=== PATIENT | female | born 1970 | race Caucasian/White ===

== ENCOUNTER 2018-01-25 12:55 | Inpatient (IN) | payer OTHER ==
[~2018-01-25] VITALS: Ht 160 cm; Wt 81.6 kg
[2018-01-25] MEDS ORDERED: LOSA100T15 PO (13:16)
[2018-01-25] MEDS ORDERED: METO100T14 PO (13:16)
[2018-01-25] MEDS ORDERED: DULA1.5P SQ (13:16)
[2018-01-25] MEDS ORDERED: PRAV40TA PO (13:16)
[2018-01-25] MEDS ORDERED: METF-495 PO (13:16)
[2018-01-25] MEDS ORDERED: hydrALAZINE HCL 50 MG TABLET PO PRN (13:45)
[2018-01-25] MEDS ORDERED: diphenhydrAMINE 50 MG CAPSULE PO PRN (13:45)
[2018-01-25] MEDS ORDERED: ONDANSETRON 4 MG/2 ML VIAL IM PRN (13:45)
[2018-01-25] MEDS ORDERED: LOPERAMIDE HCL 2 MG CAPSULE PO PRN ×2 (13:45)
[2018-01-25] MEDS ORDERED: DICYCLOMINE HCL 20 MG TABLET PO PRN (13:45)
[2018-01-25] MEDS ORDERED: DEXTROSE 50% 50 ML DISP.SYRIN IV PRN (13:45)
[2018-01-25] MEDS ORDERED: LORAZEPAM 1 MG TABLET PO PRN (13:45)
[2018-01-25] MEDS ORDERED: MAG HYDROX/AL HYDROX/SIMETH 30 ML LIQUID UDC PO PRN (13:45)
[2018-01-25] MEDS ORDERED: MIRALAX 17 GM POWD.PACK PO PRN (13:45)
[2018-01-25] MEDS ORDERED: THIAMINE HCL 200 MG/2 ML VIAL IM ONE (13:45)
[2018-01-25] MEDS ORDERED: LORAZEPAM 2 MG/1 ML VIAL IM PRN (13:45)
[2018-01-25] MEDS ORDERED: MAGNESIUM HYDROXIDE 30 ML LIQUID UDC PO PRN (13:45)
[2018-01-25] MEDS ORDERED: ACETAMINOPHEN 325 MG TABLET PO PRN (13:45)
[2018-01-25 14:10] VITALS: BP 183/96
[2018-01-25 14:10] LABS: *AMPHETAMINE, URINE NEGATIVE (NEGATIVE); *BARBITURATE, URINE NEGATIVE (NEGATIVE); *CANNABINOID, URINE NEGATIVE (NEGATIVE); *COCCAINE, URINE NEGATIVE (NEGATIVE); *OPIATE, URINE NEGATIVE (NEGATIVE); *PHENCYCLIDINE SCREEN,URINE NEGATIVE (NEGATIVE)
--- NOTE | 2018-01-25 14:10 | NUR ---
PRE-ADMISSION Pt is a 47 year old female, AA&Ox4 presenting herself to [facility] recovery for ETOH and Benzo use. Pt is noted with anxiety m/b difficulty staying still. Pt is c/o hot/chills and sweats and headache /10. Facial grimacing is observed. BP was 183/96, P 77 R 18, T 98.1, O2 98%. Pt was seen and examined by Dr. Wang. Pt will be admitted up on the unit. Will continue to f/u.
[2018-01-25 14:27] LABS: *URINE HCG, QUAL NEGATIVE (NEGATIVE)
[2018-01-25] MEDS ORDERED: FLUC100T8 PO (15:15)
[2018-01-25] MEDS ORDERED: PHEN-894 PO ×2 (15:15)
[2018-01-25] MEDS ORDERED: METO200T49 PO (15:15)
[2018-01-25] MEDS ORDERED: CEPH500C2 PO (15:15)
[2018-01-25] MEDS ORDERED: ASPI81TA31 PO (15:15)
[2018-01-25] MEDS ORDERED: LABETALOL HCL 100 MG TABLET PO ONE (15:15)
[2018-01-25] MEDS ORDERED: CLON0.1T PO (15:15)
[2018-01-25] MEDS ORDERED: IBUP-1953 PO (15:15)
[2018-01-25] MEDS ORDERED: EPIN0.3A3 IM (15:15)
[2018-01-25] MEDS ORDERED: ONDA8TAB13 PO (15:15)
[2018-01-25] MEDS ORDERED: DIPH25CA83 PO (15:15)
[2018-01-25] MEDS: IBUPROFEN 400 MG TABLET PO PRN (15:20)
[2018-01-25] MEDS: LORAZEPAM 1 MG TABLET PO SCH ×3 (15:20→21:25)
[2018-01-25 15:29] LABS: *BILIRUBIN,URIN NEGATIVE (NEGATIVE); *BLOOD, URINE NEGATIVE (NEGATIVE); *COLOR,URINE YELLOW (YELLOW); *KETONES,URINE TRACE (NEGATIVE); *PROTEIN,URINE TRACE (NEGATIVE); *UROBILINOGEN,URINE 0.2 E.U./dl (NORMAL); LEUKOCYTE ESTERASE ,URINE NEGATIVE (NEGATIVE); NITRITE, URINE NEGATIVE (NEGATIVE); UGLUCOSE NEGATIVE (NEGATIVE)
[2018-01-25 15:51] LABS: *CLARITY,URINE SLIGHTLY HAZY (CLEAR)
[2018-01-25 15:52] LABS: BACTERIA,URINE MODERATE /HPF (NONE SEEN); MUCUS,URINE FEW /LPF (0-FEW); SQUAMOUS EPITHELIAL CELL,UR MODERATE /HPF (NONE SEEN); WBC,URINE 0-3 /HPF (0-3)
[2018-01-25 15:52] LABS: BASOPHILS # (AUTO) 0.1 K/uL (0.0-8.0); BASOPHILS % (AUTO) 0.7 % (0.0-2.0); EOSINOPHILS % (AUTO) 0.4 % (0.0-7.0); HEMOGLOBIN 14.1 g/dL (10.9-14.3); LYMPHOCYTES % (AUTO) 21.2 % (20.5-51.5); MEAN CORPUSCULAR HEMOGLOBIN 31.8 uug (24.7-32.8); MEAN CORPUSCULAR HGB CONC 34 g/dL (32.3-35.6); MEAN CORPUSCULAR VOLUME 94.8 fL (75.5-95.3); MONOCYTES # (AUTO) 0.7 K/uL (2.0-10.0); MONOCYTES % (AUTO) 7.8 % (0.0-11.0); NEUTROPHILS # (AUTO) 6.4 K/uL (1.8-8.9); NEUTROPHILS % (AUTO) 69.9 % (38.5-71.5); PLATELET COUNT (AUTO) 322 K/uL (179-408); RED BLOOD CELL COUNT(AUTO) 4.43 MIL/uL (3.63-4.92); WHITE BLOOD COUNT (AUTO) 9.2 K/uL (3.8-11.8)
[2018-01-25 16:00] VITALS: BP 147/92
[2018-01-25 16:08] LABS: ALANINE AMINOTRANSFERASE 26 U/L (14-59); ALKALINE PHOSPHATASE 82 U/L (50-136); AMYLASE 23 U/L (25-115); ASPARTATE AMINOTRANSFERASE 14 U/L (15-37); CARBON DIOXIDE 29 mmol/L (21-32); CHLORIDE 96 mmol/L (98-107); CREATININE 0.9 mg/dL (0.6-1.3); GLUCOSE 245 mg/dL (74-106); POTASSIUM 4.3 mmol/L (3.5-5.1); TOTAL PROTEIN, SERUM 8.1 g/dL (6.4-8.2); UREA NITROGEN, BLOOD 9 mg/dL (7-18)
[2018-01-25] MEDS ORDERED: PHENAZOPYRIDINE 200 MG PO PRN (16:15)
[2018-01-25 16:20] LABS: THYROID STIMULATING HORMONE 2.104 mIU/mL (0.358-3.740)
--- NOTE | 2018-01-25 16:20 | NUR ---
ADMISSION NOTE Pt is a 47 yr old female, AA&Ox4. Pt is presenting herself to [facility] for ETOH and Benzo use. Pt is observed with anxiety m/b difficulty staying still. Pt is noted with facial redness and fine tremors on BUE. Body check was complete. Skin is intact, warm and moist to touch. Pt c/o headache 03/30 Pt was given Motrin 400mg PO PRN as ordered and Labetalol 100mg PO x1 for increase BP of 183/96 at 1520. Medication was effective. After 1 hour, BP was 147/92. Pt was encouraged increase fluid intake. Pt states of having multiple allergies to food and medication. Pt states of being having allergies to Ciprofloxacin, Hydrocodone, Ketorolac, Metoclopramide, Nitrofurantoin, Oxycodone, Prochlorperazine, Eggs, Tree nuts, Peanuts, Kiwi, Nectarine, and peach. Pt states she follows a Vegetarian diet. Pt has PMH of DM II, HTN, Hyperlipidemia, Anxiety, Panic Disorder, Bulging disc, kidney disease and Hx of UTI. Pt has past Sx of Tonsillitis, Hysterectomy, x2, Cardiac Ablation, Nose Sx and Lap-ban. Pt brought medication from home and was reconciled. Pt PCP is Dr. Vesta Watson from [facility] and Pharmaceutical doctor is Dr. Eder Medrano. Substance History Use: 1. ETOH - Pt states of first drinking at the age of 12 but became an issue in 2008. Pt states she relapsed in 2009 and was drinking 1500ml of wine or 750ml of Vodka daily for the past 8 years. Last drink was on 01/24/18, pt states she drank 6-7 shots of vodka. 2. Klonopin - Pt states she was given Klonopin 3 years ago for anxiety. Pt states of taking 2-3mg PO daily for the past 3 years. Last use was on 01/24/18 pt states of taking 2mg PO PRN. Pt states she has been drinking heavily to suppress her anxiety. Pt states it has been affecting her health, her work and affecting her relationship with her family. Pt states of wanting to stop drinking and maintain a sober lifestyle. Pt states of drinking until she blacks out every night and cannot recall the events that occurred during the night. She states of fallen several times from being too intoxicated. Pt states, "I do not want to ". No SI/HI noted. Admission CIWA score is 13. Pt was seen and examined by Dr. Wang and start on a 5 day modified Ativan taper as ordered. Pt was educated on medication regimen and plan of care. Pt was able to verbalized. Pt is on fall and seizure precaution. Pt is also on a consistent diabetic Vegetarian Carb diet. Pt was oriented around unit and equipment in room. Will continue to monitor.
[2018-01-25 16:26] LABS: ETHANOL < 3 MG/DL (0-0)
[2018-01-25 16:31] LABS: MAGNESIUM 1.2 mg/dL (1.8-2.4)
[2018-01-25] MEDS ORDERED: MAGNESIUM OXIDE 400 MG TABLET PO ONE ×2 (16:45→21:00)
[2018-01-25] MEDS: BLOOD SUGAR DIAGNOSTIC 1 EACH STRIP VI SCH ×2 (17:18→21:29)
[2018-01-25] MEDS: METFORMIN HCL 500 MG TABLET PO SCH (17:18)
[2018-01-25] MEDS: INSULIN REGULAR, HUMAN 300 UNIT/3 ML VIAL SQ PRN (17:28)
[2018-01-25] MEDS ORDERED: PATIENT MAY USE OWN MED- MD OK PO SCH (18:00)
--- NOTE | 2018-01-25 19:10 | NUR ---
END OF SHIFT Pt is noted with increase anxiety. Fine tremors are seen on BUE. Facial redness is noted. Pt is c/o chills and itching sensation on BUE and BLE. Ativan 2mg PO was given at 1844 as scheduled. Encouraged increase fluids for hydration. Last CIWA score was 10 at 1600. Endorsed to shiftman nurse to continue to monitor.
--- NOTE | 2018-01-25 19:15 | NUR ---
Start of Shift Note: Received patient from day shift nurse. Patient 47 y.o female admitted on 01/25/18 for medically supervised withdrawal from ETOH & Klonopin. Patient has multiple allergies to food and medications. Patient received in her room sitting in bed and appears flushed, has racing thoughts and appears anxious. Patient presented with restlessness, fine tremors, reports mild headache, & tingling sensation on skin. Patient started on Ativan taper and tolerating medications well. Last CIWA is 10. Pt received PRN Motrin during day shift and was effective. Patient is diabetic and educated compliance of diet regimen. Educated patient on current plan of care and verbalized understanding. Patient is stable at this time. Will continue to monitor patient.
--- NOTE | 2018-01-25 19:47 | NUR ---
PRN Hydralazine Patient noted with a B/P 162/106, MI 82. Pt denies any chest pain, dizziness, headache or nausea. PRN Hydralazine administered as ordered. Will continue to monitor.
[2018-01-25 20:00] VITALS: BP 162/106
--- NOTE | 2018-01-25 20:47 | NUR ---
PRN Reassessment Rechecked Vitals: B/P 153/86, IA 89 noted at this time. Will continue to monitor patient.
[2018-01-25] MEDS: PRAVASTATIN 40MG PO SCH (21:25)
[2018-01-25] MEDS: INSULIN REGULAR, HUMAN 300 UNITS/3 ML VIAL SQ PRN (21:31)
[2018-01-26] VITALS (9 sets, daily range): BP systolic 137–179; BP diastolic 71–98
[2018-01-26] MEDS: LORAZEPAM 1 MG TABLET PO PRN ×2 (01:31→17:25)
--- NOTE | 2018-01-26 01:31 | NUR ---
PRN Ativan Patient woke up sweating and complains of anxiety. CIWA 8 noted at this time. PRN Ativan administered as ordered. Safety measures in place. Will continue to monitor patient.
--- NOTE | 2018-01-26 02:31 | NUR ---
PRN Reassessment Patient asleep in bed and appears comfortable. No s/s of pain or discomfort noted at this time. safety measures in place. Call light within pt's reach. Will continue to monitor patient.
--- NOTE | 2018-01-26 07:13 | NUR ---
End of Shift Note: Pt had an uneventful night. Pt is on Ativan taper and tolerating well. Pt presented with anxiety, agitation, mild headache, sweating & tingling feeling on the skin. Last CIWA 8. Pt received PRN Hydralazine for increased BP and Ativan for s/s of withdrawal during my shift and were effective. Last BS is 170 and received 3 units of regular insulin and tolerated well. Vitals monitored closely. Continue to closely monitor s/s of withdrawals. Pt remained compliant with medications and treatment. Pt stable at this time. Encourage pt to increase fluid intake. Fluid intake: 500 ml, Voided 2x with no bowel movement. Pt slept for a total of 5 hours. All needs attended & met. Safety measures in place. Will endorse pt to day shift nurse.
--- NOTE | 2018-01-26 07:35 | NUR ---
START OF SHIFT Pt is a 47 yr old female, AA&Ox4. pt was admitted on 01/25/18 for ETOH/Benzo withdrawal and is on 5 day Ativan taper as ordered. Medication piotr well. Received report from night auditor nurse. Pt received Hydralazine PRN and Ativan 1mg PO PRN during the night for increase BP and s/s of w/d. Medication was effective. Last CIWA score was 8. Pt slept for 6 hrs. Pt is on Accu check ACHS. Last BS was 170 at HS. Pt is currently c/o anxiety. Fine tremors are seen on BUE. Skin is intact, warm and moist to touch. Pt was encouraged increase fluid intake. Pt is on fall and seizure precautions. Will continue to monitor.
[2018-01-26] MEDS: BLOOD SUGAR DIAGNOSTIC 1 EACH STRIP VI SCH ×4 (07:59→20:40)
[2018-01-26] MEDS: METFORMIN HCL 500 MG TABLET PO SCH ×2 (08:00→17:25)
[2018-01-26] MEDS: INSULIN REGULAR, HUMAN 300 UNIT/3 ML VIAL SQ PRN ×2 (08:04→12:24)
[2018-01-26] MEDS: ASPIRIN 81MG PO SCH (08:43)
[2018-01-26] MEDS: SUCCINATE PO SCH (08:43)
[2018-01-26] MEDS: FOLIC ACID 1 MG TABLET PO SCH (08:43)
[2018-01-26] MEDS: LORAZEPAM 1 MG TABLET PO SCH ×3 (08:43→20:37)
[2018-01-26] MEDS: MULTIVITAMINS,THERAPEUTIC TABLET PO SCH (08:43)
[2018-01-26] MEDS: THIAMINE HCL 100 MG TABLET PO SCH (08:43)
[2018-01-26] MEDS: METOPROLOL PO SCH (08:43)
[2018-01-26] MEDS: LOSARTAN 100MG PO SCH (08:43)
[2018-01-26] MEDS ORDERED: TRULICITY (DULAGLUTIDE) 1.5MG/0.5ML SQ SCH (09:00)
[2018-01-26] MEDS ORDERED: TUBERCULIN,PURIF.PROT.DERIV. 5 TU/0.1 ML TEST ID ONE (09:00)
[2018-01-26] MEDS ORDERED: GABAPENTIN 300 MG CAPSULE PO SCH (11:00)
[2018-01-26] MEDS: hydrALAZINE HCL 50 MG TABLET PO PRN (12:44)
--- NOTE | 2018-01-26 12:44 | NUR ---
PRN GIVEN Pt's BP was 153/94. Hydralazine 75mg PO PRN was given for increase BP. Encouraged increase fluid intake. Will continue to monitor.
--- NOTE | 2018-01-26 13:49 | NUR ---
PRN RE-ASSESSMENT Hydralazine 75mg PO PRN was effective. BP is 143/86. Pt was encouraged increase fluid intake. Will continue to monitor.
[2018-01-26] MEDS: GABAPENTIN 300 MG CAPSULE PO SCH ×2 (14:37→20:37)
[2018-01-26] MEDS: IBUPROFEN 400 MG TABLET PO PRN (14:49)
--- NOTE | 2018-01-26 14:50 | NUR ---
PRN GIVEN Pt c/o headache 5/10. Facial grimacing is observed. Motrin 400mg PO PRN was given as ordered. Medication piotr well. Encouraged increase fluid intake. Will continue to monitor.
--- NOTE | 2018-01-26 15:50 | NUR ---
PRN RE-ASSESSMENT Motrin 400mg PO PRN was effective. Pt denies any headache at this time. Will continue to monitor.
--- NOTE | 2018-01-26 17:26 | NUR ---
MD COMMUNICATION Pt is noted with increase BP of 175/93. Pt is asymptomatic. Pt states of having anxiety CIWA score was 8. Ativan 1mg PO PRN was given at 1725 for CIWA score of 8. Reported to Dr. Wang with new order for Labetalol 100mg PO x1 for increase BP. New order was noted and carried out. Will continue to monitor.
[2018-01-26] MEDS ORDERED: LABETALOL HCL 100 MG TABLET PO ONE (17:30)
--- NOTE | 2018-01-26 18:54 | NUR ---
END OF SHIFT Pt is a 47 yr old female, AA&Ox4. Pt was admitted on 01/25/18 for ETOH/Benzo withdrawal and is on 5 day Ativan taper as ordered. Medication piotr well. Pt has been cooperative with medication regimen and plan of care. Pt is on Accu check ACHS. Last BS was 125 prior to dinner. No insulin was given. Pt has been cooperative with a consistent diabetic Carb diet. Pt was c/o increase anxiety and headache during the day. Fine tremors were seen on BUE. Pt is noted with facial redness. Pt received Motrin 400mg PO PRN at 1449 for headache. Medication was effective. Pt also received Hydralazine 75mg PO PRN at 1244 and Labetalol 100mg PO x1 at 1759 for increase BP. Medication was effective. Last BP was 155/90 at 1845. Ativan 1mg PO PRN was also given at 1725 for CIWA of 8. Medication was effective. Last CIWA score was 5 at 1824. Pt was encouraged increase fluid intake for hydration. Pt is on fall and seizure precautions. Call light is within reach.
--- NOTE | 2018-01-26 19:30 | NUR ---
START OF SHIFT Received 47 year old female patient admitted on 01/25/18 for ETOH and Benzodiazepine withdrawal. Pt is alert and oriented x4. Pt reports history of DM type 2 and follows a vegetarian diet. Pt is compliant with diet. She continues on a 4 day Ativan taper, currently on day 1 and tolerating well. She is noted to be anxious, restless, and agitated. She complains of clammy skin, and chills. Per endorsement, pt received PRN Hydralazine, Motrin and Ativan and one time order of Labetalol for increased BP. Last BS: 125, last COWS: 5 at 1824. Breathing is even and unlabored, safety measures in place. Will continue to monitor.
[2018-01-26] MEDS: PRAVASTATIN 40MG PO SCH (20:37)
[2018-01-27] VITALS (9 sets, daily range): BP systolic 138–195; BP diastolic 86–104
[2018-01-27] MEDS: LORAZEPAM 1 MG TABLET PO PRN (00:20)
[2018-01-27] MEDS: hydrALAZINE HCL 50 MG TABLET PO PRN ×2 (00:20→12:28)
--- NOTE | 2018-01-27 00:20 | NUR ---
PRN HYDRALAZINE/ATIVAN Pt complains of anxiety, restlessness, numbness and tingling to the face and head. CIWA:7. Pt also noted with increased BP: 165/96, HR:74. PRN Hydralazine and Ativan 1 mg administered as ordered. Will monitor effectiveness.
--- NOTE | 2018-01-27 01:20 | NUR ---
PRN REASSESSMENT PRN medications effective. BP: 158/95 HR:82. CIWA decreased to 5. Breathing even and unlabored, safety measures in place. Will monitor.
--- NOTE | 2018-01-27 05:50 | NUR ---
[place] CLONIDINE RE-ASSESSMENT PATIENT BP RECHECKED. BP-134/93. WILL CONTINUE TO MONITOR Addendum: 01/28/18 at 0659 by SRI SANFORD LVN ERROR: WRONG TIME
--- NOTE | 2018-01-27 07:02 | NUR ---
END OF SHIFT Pt is a 47 year old female patient admitted on 01/25/18 for ETOH and Benzodiazepine withdrawal. Pt remains alert and oriented x4. She continues on a 4 day Ativan taper, currently on day 2 and is tolerating well. She was noted to be anxious, restless, and agitated and had complaints of clammy skin, and chills during the shift. At 0020 she received PRN Hydralazine and Ativan. She slept a total of 6 hrs, Intake:1500mL, Void:x3, BM:0, Last COWS:5 at 0120, BS: 118. Breathing is even and unlabored, safety measures in place. Endorsed to AM shift.
--- NOTE | 2018-01-27 07:30 | NUR ---
START OF SHIFT Received report from night supervisor nurse. Pt is lying in bed resting with respirations even and unlabored. Pt is easily arousable. She is a 47 yo female admitted to [facility] on 01/25 for ETOH and BZD withdrawal. Pt is A&O and ambulatory. She has DM Type II with accu checks ordered ACHS. Pt continues on at Ativan taper. Skin is warm and moist. She is observed with restless legs, flushed face, and reports anxiety. Pt slept for 6 hours. Fall and seizure precautions in place. Bed is down with call light in reach.
[2018-01-27] MEDS: BLOOD SUGAR DIAGNOSTIC 1 EACH STRIP VI SCH ×4 (07:53→21:35)
[2018-01-27] MEDS: METFORMIN HCL 500 MG TABLET PO SCH ×2 (08:12→21:37)
[2018-01-27] MEDS: ASPIRIN 81MG PO SCH (08:12)
[2018-01-27] MEDS: FOLIC ACID 1 MG TABLET PO SCH (08:12)
[2018-01-27] MEDS: LOSARTAN 100MG PO SCH (08:13)
[2018-01-27] MEDS: SUCCINATE PO SCH (08:14)
[2018-01-27] MEDS: METOPROLOL PO SCH (08:14)
[2018-01-27] MEDS: GABAPENTIN 300 MG CAPSULE PO SCH ×2 (08:15→14:41)
[2018-01-27] MEDS: MULTIVITAMINS,THERAPEUTIC TABLET PO SCH (08:16)
[2018-01-27] MEDS: THIAMINE HCL 100 MG TABLET PO SCH (08:16)
[2018-01-27] MEDS: INSULIN REGULAR, HUMAN 300 UNIT/3 ML VIAL SQ PRN (08:21)
[2018-01-27 08:33] LABS: CREATININE 0.7 mg/dL (0.6-1.3); MAGNESIUM 1.5 mg/dL (1.8-2.4)
[2018-01-27] MEDS ORDERED: LORAZEPAM 1 MG TABLET PO SCH ×2 (09:00→21:00)
[2018-01-27] MEDS: HYDROXYZINE PAMOATE 25 MG CAPSULE PO PRN (10:33)
--- NOTE | 2018-01-27 10:38 | NUR ---
PRN Paveltaril Pt reports feeling anxious. She is tearful and emotional when speaking about her family. Provided support. Fine tremors observed. PRN Paveltaril administered.
--- NOTE | 2018-01-27 11:38 | NUR ---
PRN Vistaril reassessment PRN Vistaril effective. Pt feels less anxious. She is no longer tearful and is attending a group meeting.
[2018-01-27] MEDS ORDERED: MAGNESIUM OXIDE 400 MG TABLET PO ONE ×2 (12:00→15:00)
[2018-01-27] MEDS: IBUPROFEN 400 MG TABLET PO PRN ×2 (12:27→21:06)
[2018-01-27] MEDS: LORAZEPAM 1 MG TABLET PO SCH ×2 (12:27→17:28)
--- NOTE | 2018-01-27 12:29 | NUR ---
PRN Motrin Pt c/o headache 12/28. PRN Motrin administered.
--- NOTE | 2018-01-27 12:30 | NUR ---
PRN Hydralazine Pt's B/P is 195/104 and HR 77. She reports feeling somewhat anxious about needing to make phone calls home. Provided support and encouraged relaxation. PRN Hydralazine administered.
--- NOTE | 2018-01-27 12:45 | NUR ---
PRN Hydralazine and Motrin reassessment PRN Hydralazine not effective. Pt's B/P 188/104. Dr. Wang made aware and will place new orders. PRN Motrin effective. Pt reports headache is relieved.
[2018-01-27] MEDS ORDERED: LABETALOL HCL 200 MG TABLET PO ONE (14:00)
[2018-01-27] MEDS ORDERED: HYDROXYZINE PAMOATE 25 MG CAPSULE PO ONE (14:15)
--- NOTE | 2018-01-27 14:41 | NUR ---
One time Lebatolol and Vistaril Pt's B/P 188/104 and she reports anxiety. Contacted Dr. Wang with orders for one time Lebatolol and Vistaril.
--- NOTE | 2018-01-27 15:15 | NUR ---
PRN Clonidine and one time Valsartan Pt's B/P on admission is 178/[address] Wang made aware. Orders received to administer home medication Valsartan and PRN Clonidine. Addendum: 01/27/18 at 1754 by BOBO WILLS RN Disregard note. Intended for another patient.
--- NOTE | 2018-01-27 16:30 | NUR ---
One time Lebatolol and Vistaril reassessment Lebatolol and Vistaril effective. Pt is lying in bed resting. B/P 138/89 and HR 85.
--- NOTE | 2018-01-27 16:30 | NUR ---
PRN Clonidine and one time Valsartan reassessment PRN Clonidine and Valsartan effective at reducing pt's B/P to 158/79. Addendum: 01/27/18 at 1752 by BOBO WILLS RN Disregard note: intended for another patient.
--- NOTE | 2018-01-27 19:20 | NUR ---
END OF SHIFT Report provided to operations supervisor 2nd shift nurse. Pt is lying in bed watching TV. She is a 47 yo female admitted to [facility] on 01/25 for ETOH and BZD withdrawal. Pt is A&O and ambulatory. She has DM Type II with accu checks ordered ACHS. Last blood glucose before dinner was 113. Pt had elevated B/P. PRN Motrin and Vistaril administered. She had elevated B/P. PRN Hydralazine administered and not effective. One time Labetalol and Vistaril administered and effective. Last blood sugar before dinner was 113. She is compliant with her diabetic diet. Last CIWA was 7. She attended earlier group meetings but did not attend H&I. Encouraged attendance of all meetings. Fall and seizure precautions in place. Bed is down with call light in reach.
--- NOTE | 2018-01-27 20:00 | NUR ---
START OF SHIFT NOTE RECEIVED REPORT FROM DAY SHIFT NURSE. PATIENT IS A 47 YEAR OLD FEMALE ADMITTED FOR ETOH/BENZO WITHDRAWAL. PATIENT IS ON 3RD DAY OF HER 5 DAY ATIVAN TAPER. PATIENT WITH HISTORY OF HYPERTENSION. PATIENT IS HYPERTENSIVE DURING THE DAY. PATIENT WAS GIVEN PRN HYDRALAZINE AND LABETALOL X 1. LAST BP- 188/104. PRN MOTRIN, VISTARIL AND ONE TIME VISTARIL GIVEN. PATIENT ON ACCUCHECK ACHS. LAST BLOOD SUGAR 113. LAST CIWA 7. RECEIVED PATIENT IN THE BED, PATIENT STATES IM HAVING UPSET STOMACH AND FEELING OF FOOD STUCK I HAD GASTRIC LAP BAND SINCE 2008 AND I JUST NEED TO REST FOR NOW. SAFETY MEASURES IN PLACE. CALL LIGHT IN REACH. WILL CONTINUE TO MONITOR. Addendum: 01/28/18 at 0623 by SRI SANFORD LVN ERROR: LAST BP- IS 138/89
--- NOTE | 2018-01-27 20:00 | NUR ---
METFORMIN PATIENT UNABLE TAKE METFORMIN AT THIS TIME. PER PATIENT SHE HAS UPSET STOMACH
[2018-01-27] MEDS ORDERED: AMLODIPINE 5 MG TABLET PO SCH (21:00)
[2018-01-27] MEDS ORDERED: GABAPENTIN 300 MG CAPSULE PO SCH (21:00)
--- NOTE | 2018-01-27 21:06 | NUR ---
PRN MOTRIN ADMINISTRATION PATIENT C/O HEADACHE 12/28. WILL MONITOR FOR EFFECTIVENESS
[2018-01-27] MEDS: PRAVASTATIN 40MG PO SCH (21:40)
[2018-01-27] MEDS: CLONIDINE HCL 0.1 MG TABLET PO SCH (21:40)
--- NOTE | 2018-01-27 22:06 | NUR ---
PRN MOTRIN RE-ASSESSMENT PATIENT STATES MOTRIN IS HELPFUL AND EFFECTIVE. NO HEADACHE AT THIS TIME.
[2018-01-28] VITALS (8 sets, daily range): BP systolic 124–177; BP diastolic 86–105
--- NOTE | 2018-01-28 | NUR ---
CIWA DEFERRED PATIENT IN BED WITH EYES CLOSED. RESPIRATION EVEN AND UNLABORED. SAFETY MEASURES IN PLACE. CALL LIGHT IN REACH. WILL CONTINUE TO MONITOR
[2018-01-28] MEDS: hydrALAZINE HCL 50 MG TABLET PO PRN ×2 (00:51→12:09)
--- NOTE | 2018-01-28 00:51 | NUR ---
PRN HYDRALAZINE ADMINISTRATION PATIENT'S BP- 177/105. WILL MONITOR FOR EFFECTIVENESS
--- NOTE | 2018-01-28 01:51 | NUR ---
PRN HYDRALAZINE RE-ASSESSMENT PATIENT'S BP RECHECKED . BP- IS 144/92. WILL CONTINUE TO MONITOR
[2018-01-28 03:08] LABS: HEPATITIS B SURFACE AG Negative (Negative)
--- NOTE | 2018-01-28 04:00 | NUR ---
CIWA DEFERRED PATIENT IN BED WITH EYES CLOSED. RESPIRATION EVEN AND UNLABORED. SAFETY MEASURES IN PLACE. CALL LIGHT IN REACH. WILL CONTINUE TO MONITOR
[2018-01-28] MEDS ORDERED: CLONIDINE HCL 0.1 MG TABLET PO ONE (04:45)
--- NOTE | 2018-01-28 04:50 | NUR ---
ONE TIME CLONIDINE ADMINISTRATION PATIENT'S BP- 164/93. WILL MONITOR FOR EFFECTIVENESS
--- NOTE | 2018-01-28 05:50 | NUR ---
PRN CLONIDINE RE-ASSESSMENT PATIENT BP RECHECKED. BP-134/93. WILL CONTINUE TO MONITOR
--- NOTE | 2018-01-28 07:09 | NUR ---
END OF SHIFT NOTE PATIENT SLEPT 6 HOURS. FLUID INTAKE 1,500 ML. VOIDED X 3 . NO BM. MONITORED PATIENT THROUGHOUT SHIFT. PATIENT COMPLIANT WITH MEDICATION. PATIENT IS HYPERTENSIVE DURING SHIFT. PATIENTS BP BEGINNING OF SHIFT WAS 171/92. SHEDULED CLONIDINE AND NORVASC GIVEN. BP- WENT DOWN TO 144/90. PATIENT WAS GIVEN PRN HYDRALAZINE AT 0051 FOR BP-177/105 AND BP WENT DOWN TO 142/92 . AT 0450 ONE TIME CLONIDINE GIVEN FOR BP-164/93 AND BP WENT DOWN TO 134/93. PATIENT DENIES CHEST PAIN. PATIENT WAS GIVEN PRN MOTRIN AT 2106 FOR HEADACHE 12/28. PATIENT ON ACCUCHECK ACHS. LAST BLOOD SUGAR 120 AT 2100. NO INSULIN GIVEN. NO SIGNS AND SYMPTOMS OF HYPO/HYPERGLYCEMIA. PATIENT SAFETY MEASURES IN PLACE. CALL LIGHT IN REACH. WILL CONTINUE TO MONITOR.
--- NOTE | 2018-01-28 07:10 | NUR ---
Start of Shift Obgyn Hospitalist Physician received report on 47 year old female admitted to [facility] on 01/25/18 for medical management of ETOH and Benzodiazepine withdrawals. Pt reports allergies to: Ciprofloxacin, egg, Hydrocodone, Ketorolac, kiwi, raglan, nectarine, Macrobid, Oxycodone, peach, peanuts and tree nuts. Pt eats a vegetarian diet with no fish or eggs and is a full code. PMH to include DM II, HTN, Lap Band surgery, Kidney disease, cardiac ablation and bulging disc. PPH of anxiety and panic DO. Pt administered Motrin(pain) and Hydralazine(HTN) on NOC per report. Pt currently on an Ativan taper, tolerating well with last CIWA 7, per NOC report. Obgyn Hospitalist Physician encounters pt in her room resting. Obgyn Hospitalist Physician performs morning accu-check. Pt A/O x4 and makes her needs known. Calm and cooperative with no complaints voiced. Bed in low position, wheels locked and side rails up x2. Will continue to monitor, support and encourage according to plan of care.
[2018-01-28] MEDS: BLOOD SUGAR DIAGNOSTIC 1 EACH STRIP VI SCH ×4 (07:27→20:36)
[2018-01-28] MEDS: ASPIRIN 81MG PO SCH (08:13)
[2018-01-28] MEDS: FOLIC ACID 1 MG TABLET PO SCH (08:13)
[2018-01-28] MEDS: METFORMIN HCL 500 MG TABLET PO SCH ×2 (08:13→17:03)
[2018-01-28] MEDS: CLONIDINE HCL 0.1 MG TABLET PO SCH ×3 (08:13→20:20)
[2018-01-28] MEDS: METOPROLOL PO SCH (08:14)
[2018-01-28] MEDS: SUCCINATE PO SCH (08:14)
[2018-01-28] MEDS: MULTIVITAMINS,THERAPEUTIC TABLET PO SCH (08:14)
[2018-01-28] MEDS: THIAMINE HCL 100 MG TABLET PO SCH (08:14)
[2018-01-28] MEDS: LOSARTAN 100MG PO SCH (08:14)
[2018-01-28] MEDS: GABAPENTIN 300 MG CAPSULE PO SCH ×3 (08:14→20:21)
[2018-01-28] MEDS: INSULIN REGULAR, HUMAN 300 UNIT/3 ML VIAL SQ PRN ×2 (08:16→17:09)
[2018-01-28] MEDS ORDERED: LORAZEPAM 1 MG TABLET PO SCH ×2 (09:00→21:00)
[2018-01-28] MEDS ORDERED: AMLODIPINE 5 MG TABLET PO SCH ×2 (09:00→21:00)
[2018-01-28] MEDS: IBUPROFEN 400 MG TABLET PO PRN (10:17)
--- NOTE | 2018-01-28 10:17 | NUR ---
PRN Motrin Pt complain of headache 6/10 and requests Motrin. Non-pharmacological interventions attempted. Beating Machine Operator administers medication per order, with pt tolerating well. Will continue to monitor, support and encourage according to plan of care.
--- NOTE | 2018-01-28 11:16 | NUR ---
PRN Re-Assessment Pt endorses relief, stating, " feel muya better." Will continue to monitor, support and encourage according to plan of care."
--- NOTE | 2018-01-28 11:17 | NUR ---
Endorsement Laboratory Apparatus Glass Blower provided report on 47 year old female admitted to [facility] on 01/25/18 for medical management of ETOH and Benzodiazepine withdrawals. Pt reports allergies to: Ciprofloxacin, egg, Hydrocodone, Ketorolac, kiwi, raglan, nectarine, Macrobid, Oxycodone, peach, peanuts and tree nuts. Pt eats a vegetarian diet with no fish or eggs and is a full code. PMH to include DM II, HTN, Lap Band surgery, Kidney disease, cardiac ablation and bulging disc. PPH of anxiety and panic DO. Pt administered Motrin(pain) and Hydralazine(HTN) on NOC per report. Pt currently on an Ativan taper, tolerating well with last CIWA 6. Pt A/O x4 and makes her needs known. Calm and cooperative with no complaints voiced. Bed in low position, wheels locked and side rails up x2. Will continue to monitor, support and encourage according to plan of care.
--- NOTE | 2018-01-28 11:30 | NUR ---
TRANSFER OF CARE ASSUMED CARE FOR PT AND RECEIVED REPORT FROM NURSE. PT IS A 47 Y/O F ADMITTED FOR MEDICALLY SUPERVISED ETOH BENZO WITHDRAWAL. PT IS ON A 5 DAY ATIVAN TAPER THAT STARTED ON 01/25/18 AND IS ON THE FOURTH DAY; PT IS TOLERATING WELL. LAST CIWA 6 @0800 PER NURSE. PT PRESENTS ANXIETY, AGITATION, RESTLESSNESS, DIAPHORESIS, MILD NAUSEA, TREMORS NOTED. SIDE RAILS UPX2, BED LOCKED AND IN LOW POSITION, CALL LIGHT WITHIN REACH. SAFETY MEASURES IN PLACE. WILL MONITOR AND PROVIDE SUPPORT.
[2018-01-28] MEDS: ONDANSETRON ODT 4 MG TAB.RAPDIS SL PRN (11:53)
--- NOTE | 2018-01-28 11:53 | NUR ---
PRN ZOFRAN 4 MG SL PRN GIVEN FOR NAUSEA. WILL MONITOR FOR EFFECTIVENESS.
[2018-01-28] MEDS: LORAZEPAM 1 MG TABLET PO SCH ×2 (12:00→16:46)
--- NOTE | 2018-01-28 12:09 | NUR ---
PRN HYDRALAZINE 75 MG PO PRN GIVEN FOR BP 157/100. SAFETY MEASURES IN PLACE. WILL MONITOR FOR EFFECTIVENESS.
--- NOTE | 2018-01-28 12:53 | NUR ---
REASSESSMENT PT REPORTED NAUSEA HAS CEASED AND PT IS ABLE TO EAT HER LUNCH. SAFETY MEASURES IN PLACE. WILL CONTINUE TO MONITOR.
--- NOTE | 2018-01-28 13:09 | NUR ---
REASSESSMENT BP: 138/87 HR: 79. SAFETY MEASURE IN PLACE. WILL CONTINUE TO MONITOR AND PROVIDE SUPPORT.
--- NOTE | 2018-01-28 18:33 | NUR ---
END OF SHIFT PT'S LAST CIWA 9 @1600. PT IS LAYING IN BED, WATCHING TV WITH DVT PUMPS ON. PRESENTS HIGH ANXIETY, AGITATION AND RESTLESSNESS. PT HAS BEEN GIVEN HYDRALAZINE FOR HIGH BP AND ZOFRAN FOR NAUSEA; MEDS WERE EFFECTIVE. PT ATE 50/75/50% OF MEALS. FLUID INTAKE: 1520 ML, VOIDED X4, 0 BM. PT VERBALIZED SHE WANTED TO ATTEND ALL GROUPS HOWEVER IN THE AM FELL ASLEEP AND MISSED AM GROUP. PT HAS BEEN COMPLIANT WITH MED REGIMEN AND TX PLAN. SAFETY MEASURES IN PLACE. WILL GIVE ENDORSEMENT TO TRADE MARK ATTORNEY NURSE.
--- NOTE | 2018-01-28 20:00 | NUR ---
START OF SHIFT NOTE RECEIVED REPORT FROM DAY SHIFT NURSE. PATIENT IS A 47 YEAR OLD FEMALE ADMITTED FOR ETOH/BENZO WITHDRAWAL. PATIENT IS ON 4TH DAY OF HER 5 DAY OF ATIVAN TAPER. PATIENT WAS GIVEN PRN HYDRALAZINE FOR BP-157/100, EFFECTIVE, LATEST BP-137/87. PATIENTS BLOOD SUGAR WAS 162 AT 1642, 3 UNITS OF REGULAR INSULIN GIVEN. LAST CIWA 9. RECEIVED PATIENT IN THE ROOM, PATIENT STATES SHES TIRED. PATIENT WITH FLAT AFFECT, SAD, EMOTIONALLY VOLATILE, ANXIOUS AND IRRITABLE . RELAXATION TECHNIQUE PROVIDED. SAFETY MEASURES IN PLACE. CALL LIGHT IN REACH. WILL CONTINUE TO MONITOR.
[2018-01-28] MEDS: PRAVASTATIN 40MG PO SCH (20:20)
[2018-01-29] VITALS: BP 135/94
--- NOTE | 2018-01-29 | NUR ---
CIWA DEFERRED PATIENT IN BED WITH EYES CLOSED. RESPIRATION EVEN AND UNLABORED. SAFETY MEASURES IN PLACE. CALL LIGHT IN REACH. WILL CONTINUE TO MONITOR.
[2018-01-29 04:00] VITALS: BP 138/86
--- NOTE | 2018-01-29 04:00 | NUR ---
CIWA DEFERRED PATIENT IN BED WITH EYES CLOSED. RESPIRATION EVEN AND UNLABORED. SAFETY MEASURES IN PLACE. CALL LIGHT IN REACH. WILL CONTINUE TO MONITOR.
--- NOTE | 2018-01-29 06:59 | NUR ---
END OF SHIFT NOTE PATIENT SLEPT 8 HOURS. FLUID INTAKE 1,500 ML. VOIDED X 3. NO BM . MONITORED PATIENT THROUGHOUT SHIFT. PATIENT COMPLIANT WITH MEDICATION. ATIVAN TAPER TOLERATED AND NO ADVERSE REACTION. MEDICATION ARE EFFECTIVE IN CONTROLLING HER WITHDRAWAL SYMPTOMS. PATIENT WAS ANXIOUS AND EMOTIONAL DURING SHIFT. RELAXATION AND POSITIVE ENCOURAGEMENT PROVIDED. PATIENT DID NOT REQUIRE PRN MEDICATION . LAST BLOOD SUGAR IS 115. NO INSULIN GIVEN . PATIENT WITH HISTORY OF HYPERTENSION. LAST BP- 138/86. SAFETY MEASURES IN PLACE. CALL LIGHT IN REACH. WILL CONTINUE TO MONITOR. LAST CIWA 7 .
--- NOTE | 2018-01-29 07:15 | NUR ---
START OF SHIFT : PATIENT IS A 47 YR OLD FEMALE ADMITTED ON 01/25/18 FOR WITHDRAWAL FROM ALCOHOL AND BENZODIAZEPINES, SHE IS ON A 5 DAY ATIVAN TAPER AND THIS IS DAY 5. PATIENT IS ASLEEP IN BED BUT EASILY AROUSABLE. ACCUCHECK TAKEN, BS 133 , ON SLIDING SCALE PT SHOULD TAKE 2 UNITS INSULIN, PATIENT DECLINES THIS SAYING HER BLOOD SUGARS FOR THE REST OF THE DAY WILL BE NORMAL SHE WILL BE GETTING HER DIABETIC MEDICATIONS AT 0800, NOTE MADE THAT PATIENT REFUSED INSULIN. PATIENT APPEARS ANXIOUS WITH A WORRIED EXPRESSION. PATIENT DID NOT REQUIRE OR REQUEST ANY PRN MEDICATION ON PM SHIFT, SHE SLEPT FOR 8 HOURS AND LAST CIWA 7 @ 8PM. WILL CONTINUE TO FOLLOW MD PLAN OF CARE.
--- NOTE | 2018-01-29 07:30 | NUR ---
accu check BLOOD SUGAR 133, PT DECLINED SLIDING SCALE 2 UNITS INSULIN
[2018-01-29] MEDS: BLOOD SUGAR DIAGNOSTIC 1 EACH STRIP VI SCH ×4 (07:50→20:51)
[2018-01-29 08:00] VITALS: BP 131/83
[2018-01-29] MEDS: METFORMIN HCL 500 MG TABLET PO SCH ×2 (08:08→16:45)
[2018-01-29] MEDS: THIAMINE HCL 100 MG TABLET PO SCH (08:08)
[2018-01-29] MEDS: MULTIVITAMINS,THERAPEUTIC TABLET PO SCH (08:08)
[2018-01-29] MEDS: LORAZEPAM 1 MG TABLET PO SCH ×3 (08:08→20:46)
[2018-01-29] MEDS: FOLIC ACID 1 MG TABLET PO SCH (08:08)
[2018-01-29] MEDS: AMLODIPINE 10 MG TABLET PO SCH (08:09)
[2018-01-29] MEDS: CLONIDINE HCL 0.1 MG TABLET PO SCH ×3 (08:09→20:47)
[2018-01-29] MEDS: GABAPENTIN 300 MG CAPSULE PO SCH ×3 (08:09→20:47)
[2018-01-29] MEDS: METOPROLOL PO SCH (08:15)
[2018-01-29] MEDS: SUCCINATE PO SCH (08:15)
[2018-01-29] MEDS: ASPIRIN 81MG PO SCH (08:16)
[2018-01-29] MEDS: LOSARTAN 100MG PO SCH (08:16)
[2018-01-29] MEDS ORDERED: LORAZEPAM 1 MG TABLET PO SCH (09:00)
--- NOTE | 2018-01-29 10:00 | NUR ---
BP CHECK PATIENT REPORTS FEELING LIGHT HEADED AND REQUESTS BP CHECK BP 133/88, HR 78 PATIENT WAS JUST OUT OF THE SHOWER AND SAYS ITS THE FIRST TIME SHE HAD BEEN OUT OF BED RECENTLY FOR SO LONG, WILL CONTINUE TO MONITOR
[2018-01-29] MEDS: ONDANSETRON ODT 4 MG TAB.RAPDIS SL PRN (11:23)
--- NOTE | 2018-01-29 11:23 | NUR ---
PRN ZOFRAN 4MG SL GIVEN FOR C/O NAUSEA
[2018-01-29 12:00] VITALS: BP 109/76
--- NOTE | 2018-01-29 12:23 | NUR ---
PRN REASSESS NAUSEA CEASED , ZOFRAN 4MG SL EFFECTIVE
[2018-01-29] MEDS: INSULIN REGULAR, HUMAN 300 UNIT/3 ML VIAL SQ PRN ×2 (12:24→16:47)
--- NOTE | 2018-01-29 12:24 | NUR ---
NURSING NOTE BS 154, 2 UNITS INSULIN GIVEN PER SLIDING SCALE
[2018-01-29] MEDS ORDERED: AMLO10TA2 PO (13:27)
[2018-01-29] MEDS ORDERED: GABA-534 PO (13:27)
[2018-01-29] MEDS ORDERED: DIPH50CA37 PO (13:27)
[2018-01-29] MEDS ORDERED: HYDR-3895 PO (13:27)
[2018-01-29] MEDS ORDERED: IBUP-1953 PO (13:27)
[2018-01-29] MEDS ORDERED: CLON0.1T14 PO (13:27)
[2018-01-29] MEDS ORDERED: METF500T6 PO (13:27)
[2018-01-29] MEDS: HYDROXYZINE PAMOATE 25 MG CAPSULE PO PRN (13:38)
--- NOTE | 2018-01-29 13:38 | NUR ---
PRN VISTARIL 25MG PO VISTARIL GIVEN FOR C/O ANXIETY, WILL REASSESS
--- NOTE | 2018-01-29 14:37 | NUR ---
PRN REASSESS PT STATES SHE FEELS MORE RELAXED , VISTARIL EFFECTIVE, WILL CONTINUE TO MONITOR
[2018-01-29 16:00] VITALS: BP 113/80
--- NOTE | 2018-01-29 16:47 | NUR ---
BS 150 2UNITS INSULIN GIVEN PER SLIDING SCALE
--- NOTE | 2018-01-29 18:26 | NUR ---
END OF SHIFT : PATIENT IS A 47 YR OLD FEMALE ADMITTED TO [facility] ON 01/25/18 FOR A MEDICALLY SUPERVISED DETOX FROM ALCOHOL AND BENZODIAZEPINES. SHE IS ON AN ATIVAN TAPER AND THIS IS DAY 5. PATIENT HAS DM TYPE 2 AND ACHS ACCUCHECKS. BLOOD SUGARS TODAY WERE FOLLOWS : 0730 AM 133 ( NO INSULIN GIVEN PER PATIENT REFUSAL ) 12:20 BS 154/ 2 UNITS INSULIN GIVEN, 1630 BS 150/2UNITS INSULIN GIVEN. PRN MEDS GIVEN ON THIS ZOFRAN 4MG SL AND VISTARIL 25MG PO. BLOOD PRESSURES HAVE BEEN STABLE THIS SHIFT . PATIENT HAD A FLUID INTAKE OF 2675ML, 6 VOIDS AND 1 BM. PATIENT GETS ANXIOUS EASILY AND IRRITATED WHEN THE WRONG FOOD IS BROUGHT TO HER FROM THE KITCHEN, DIETARY HAS BEEN MADE AWARE OF HER ALLERGIES AGAIN TODAY. PATIENT ATTENDED ALL GROUPS TODAY. LAST CIWA 9 @ 1600.CONTINUE TO FOLLOW MD PLAN OF CARE.
--- NOTE | 2018-01-29 18:45 | NUR ---
BP PT REQUESTS BP TAKEN SHE THINKS IT'S HIGH, BP 133/80
--- NOTE | 2018-01-29 19:30 | NUR ---
START OF SHIFT Received 47 year old female patient admitted on 01/25/18 for ETOH and Benzodiazepine withdrawal. Pt is alert and oriented x4. Pt noted to be anxious, agitated, irritable and complains of headache. She continues on a 5 day Ativan taper, last dose is on 01/30. Pt is tolerating well. Per endorsement, she received PRN Zofran and Vistaril. She received 2 units of insulin at 1224 and another 2 units at 1647. Pt remains compliant with consistent carb diet. Last CIWA:9 at 1600. Breathing is even and unlabored, safety measures in place. Will monitor.
[2018-01-29 20:00] VITALS: BP 137/83
[2018-01-29] MEDS: PRAVASTATIN 40MG PO SCH (20:48)
[2018-01-29] MEDS: INSULIN REGULAR, HUMAN 300 UNITS/3 ML VIAL SQ PRN (20:54)
--- NOTE | 2018-01-29 20:54 | NUR ---
ACCU CHECK Pt's BS: 133. She received 2 units of Humulin per sliding scale. Will monitor.
[2018-01-29] MEDS: IBUPROFEN 400 MG TABLET PO PRN (21:00)
--- NOTE | 2018-01-29 21:00 | NUR ---
PRN MOTRIN Pt complains of headache. PRN Motrin administered as ordered. Breathing even and unlabored, safety measures in place. Will monitor.
--- NOTE | 2018-01-29 22:00 | NUR ---
PRN REASSESSMENT Medication effective. Pt reports headache has decreased. Breathing even and unlabored, safety measures in place. Will monitor.
[2018-01-30] VITALS: BP 128/82
[2018-01-30 04:00] VITALS: BP 131/83
[2018-01-30] MEDS: HYDROXYZINE PAMOATE 25 MG CAPSULE PO PRN (06:33)
--- NOTE | 2018-01-30 06:33 | NUR ---
PRN MAALOX/VISTARIL Pt complains of heartburn and anxiety. PRN Maalox and Vistaril administered as ordered. Breathing even and unlabored, safety measures in place. Will endorse to AM shift to reassess.
--- NOTE | 2018-01-30 07:15 | NUR ---
END OF SHIFT Pt is a 47 year old female patient admitted on 01/25/18 for ETOH and Benzodiazepine withdrawal. Pt remains alert and oriented x4. Pt was noted to be anxious, agitated, irritable and restless during the shift. She continues on a 5 day Ativan taper, and is tolerating well. She received PRN Motrin at 2100 for headache. At at 0633 she received PRN Maalox and Vistaril. Her blood sugar at 2100 was 133, she received 2 units of Humulin. She slept a total of 7 hrs, Intake: 500mL, Void: x1, BM:0, CIWA:9 at 2000. Pt remains compliant with consistent carb diet. Breathing is even and unlabored, safety measures in place. Endorsed to AM shift.
--- NOTE | 2018-01-30 07:33 | NUR ---
PRN MAALOX AND VISTARIL Patient reports prn maalox and vistaril were effective, stomach upset resolved and anxiety decreased. Addendum: 01/30/18 at 0999 by PIOTR WOLF RN THIS IS REASSESSMENT NOTE
[2018-01-30] MEDS: BLOOD SUGAR DIAGNOSTIC 1 EACH STRIP VI SCH ×4 (07:59→20:33)
[2018-01-30 08:00] VITALS: BP 136/83
[2018-01-30] MEDS: INSULIN REGULAR, HUMAN 300 UNIT/3 ML VIAL SQ PRN ×3 (08:02→17:47)
[2018-01-30] MEDS: METFORMIN HCL 500 MG TABLET PO SCH ×2 (08:02→17:49)
[2018-01-30] MEDS: CLONIDINE HCL 0.1 MG TABLET PO SCH ×2 (08:03→15:00)
[2018-01-30] MEDS: GABAPENTIN 300 MG CAPSULE PO SCH ×2 (08:03→15:03)
[2018-01-30] MEDS: AMLODIPINE 10 MG TABLET PO SCH (08:03)
[2018-01-30] MEDS: METOPROLOL PO SCH (08:04)
[2018-01-30] MEDS: THIAMINE HCL 100 MG TABLET PO SCH (08:04)
[2018-01-30] MEDS: SUCCINATE PO SCH (08:04)
[2018-01-30] MEDS: FOLIC ACID 1 MG TABLET PO SCH (08:04)
[2018-01-30] MEDS: MULTIVITAMINS,THERAPEUTIC TABLET PO SCH (08:04)
[2018-01-30] MEDS: ASPIRIN 81MG PO SCH (08:05)
[2018-01-30] MEDS: LOSARTAN 100MG PO SCH (08:05)
--- NOTE | 2018-01-30 08:05 | NUR ---
START OF SHIFT Received report from slot shift manager nurse. Patient is 47 year old female admitted for medically supervised withdrawal from alcohol and clonazepam. Patient is full code with multiple allergies. Per slot shift manager report, PRN maalox and vistaril were given, CIWA: 9. On assessment this AM: CIWA 7. Denies SOB, chest pain. Patients vitals signs WNL. Patient noted with increasing anxiety and agitation. Compliant with AM meds. No PRN given. Blood sugar was 153, 2 units regular insulin given. All needs met at this time. Call lights within reach and bed at low setting. Will continue to monitor patient.
[2018-01-30] MEDS ORDERED: LORAZEPAM 1 MG TABLET PO SCH (09:00)
[2018-01-30] MEDS: IBUPROFEN 400 MG TABLET PO PRN ×2 (09:10→17:49)
--- NOTE | 2018-01-30 09:10 | NUR ---
PRN MOTRIN Patient complains of chronic L leg pain 04/29. PRN motrin given. Will continue to monitor patient.
--- NOTE | 2018-01-30 10:10 | NUR ---
REASSESSMENT PRN MOTRIN Patient noted asleep with eyes closed, no respiratory distress noted, appears calm and relaxed.
[2018-01-30 12:00] VITALS: BP 104/69
[2018-01-30] MEDS: HYDROXYZINE PAMOATE 25 MG CAPSULE PO SCH ×3 (13:02→21:49)
[2018-01-30 16:00] VITALS: BP 114/74
--- NOTE | 2018-01-30 17:49 | NUR ---
PRN MOTRIN Patient complains of pain 7/10 body pain. PRN motrin given. Will continue to monitor patient.
--- NOTE | 2018-01-30 19:05 | NUR ---
END OF SHIFT 47 year old female admitted for medically supervised withdrawal from alcohol and clonazepam. Completed Ativan taper this morning. Most recent CIWA: 5, reports anxiety and tingling sensation. PRN motrin X2 given for L leg pain and body pain. Compliant with routine meds during this shift. Patient tolerating meals without n/v. Blood sugar at dinner time was 139, 2 units regular insulin given. night shiftnight stocker will continue to monitor patient. Pending discharge tomorrow.
--- NOTE | 2018-01-30 19:15 | NUR ---
Start of Shift Note: Received patient from day shift nurse. Patient 47 y.o female admitted on 01/25/18 for medically supervised withdrawal from ETOH & Klonopin. Patient has multiple allergies to food and medications. Patient received in her room sitting in bed watching TV. Upon assessment, pt appears anxious and agitated, denies any pain or discomfort. Patient completed Ativan taper and she is scheduled to be discharge to home tomorrow. Last CIWA is 5 at 1600. Pt received PRN Motrin during day shift and was effective per reports. Last BS is 139mg/dl and received 2 units of regular insulin. Patient remains compliant with medications, treatment and diet regimen. Educated patient on current plan of care and verbalized understanding. Patient is stable at this time. Vitals noted WNL. Will continue to monitor patient.
[2018-01-30 20:00] VITALS: BP 115/77
[2018-01-30] MEDS: INSULIN REGULAR, HUMAN 300 UNITS/3 ML VIAL SQ PRN (20:35)
[2018-01-30] MEDS ORDERED: FLUCONAZOLE 150 MG PO SCH (21:00)
[2018-01-30] MEDS ORDERED: CLONIDINE HCL 0.2 MG TABLET PO SCH (21:00)
[2018-01-30] MEDS ORDERED: GABAPENTIN 300 MG CAPSULE PO SCH (21:00)
[2018-01-30] MEDS: PRAVASTATIN 40MG PO SCH (21:49)
[2018-01-31] VITALS: BP 110/81
[2018-01-31 04:00] VITALS: BP 126/82
[2018-01-31] MEDS: IBUPROFEN 400 MG TABLET PO PRN (04:37)
[2018-01-31] MEDS: HYDROXYZINE PAMOATE 25 MG CAPSULE PO PRN (04:37)
[2018-01-31] MEDS: ONDANSETRON ODT 4 MG TAB.RAPDIS SL PRN (04:47)
--- NOTE | 2018-01-31 04:47 | NUR ---
PRN Motrin/Vistaril/Zofran Patient complains that she can't sleep. Pt is anxious about discharge and medications she'll go home with, she stated "what if I can't sleep at home or if I'm anxious or my bloodpressure is high?" Further education and reassurance provided. Pt also complained of nausea & mild headache. PRN Motrin, Vistaril & Zofran administered as ordered. Will continue to monitor patient.
--- NOTE | 2018-01-31 05:47 | NUR ---
PRN Reassessment Pt verbalized slight decreased in anxiety, relief in headache and improved nausea after medication administration. Pt awake in bed and watching TV, appears calm & comfortable. Stable at this time. Will continue to monitor patient.
--- NOTE | 2018-01-31 07:12 | NUR ---
End of Shift Note: Patient is a 47 y.o female admitted for medically supervised withdrawal from ETOH & Klonopin. Pt completed Ativan taper and is scheduled to be disharge to home today. Last CIWA is 7. Pt received PRN Motrin, Vistaril & Zofran during my shift and were effective. Last KN=200tl/dl and received 2 units or regular insulin. Pt was anxious about discharge and needed reassurance and further education regarding medications to go home with. Patient remains compliant with medications and treatment. Pt had trouble sleeping throughout the night and slept only 3 hours. Fluid intake 651. Voided 1x with no bowel movement. All needs attended & met. Safety precautions are in place. Will endorse pt to day shift nurse.
--- NOTE | 2018-01-31 07:15 | NUR ---
Start of Shift Truck Manager received report on 47 year old female admitted to [facility] on 01/25/18 for medical management of ETOH and Benzodiazepine withdrawals. Pt reports allergies to: Ciprofloxacin, egg, Hydrocodone, Ketorolac, kiwi, Reglan, nectarine, Macrobid, Oxycodone, peach, peanuts and tree nuts. Pt eats a vegetarian diet with no fish or eggs and is a full code. PMH to include DM II, HTN, Lap Band surgery, Kidney disease, cardiac ablation and bulging disc. PPH of anxiety and panic DO. Pt administered Motrin(pain), Vistaril(anxiety) and Zofran(nausea) on NOC per report. Pt has completed Ativan taper in preparation for pts discharge this am with last CIWA 7, per NOC report. Truck Manager encounters pt in her room resting with eyes closed. Rise and fall of chest noted. Even and unlabored respirations. Bed in low position, wheels locked and side rails up x2. Will continue to monitor, support and encourage according to plan of care.
[2018-01-31] MEDS: BLOOD SUGAR DIAGNOSTIC 1 EACH STRIP VI SCH (07:51)
[2018-01-31] MEDS: CLONIDINE HCL 0.1 MG TABLET PO SCH (08:08)
[2018-01-31] MEDS: METFORMIN HCL 500 MG TABLET PO SCH (08:08)
[2018-01-31] MEDS: GABAPENTIN 300 MG CAPSULE PO SCH (08:09)
[2018-01-31] MEDS: FOLIC ACID 1 MG TABLET PO SCH (08:09)
[2018-01-31] MEDS: METOPROLOL PO SCH (08:09)
[2018-01-31] MEDS: SUCCINATE PO SCH (08:09)
[2018-01-31] MEDS: LOSARTAN 100MG PO SCH (08:09)
[2018-01-31] MEDS: ASPIRIN 81MG PO SCH (08:09)
[2018-01-31] MEDS: MULTIVITAMINS,THERAPEUTIC TABLET PO SCH (08:10)
[2018-01-31] MEDS: AMLODIPINE 10 MG TABLET PO SCH (08:10)
[2018-01-31] MEDS: HYDROXYZINE PAMOATE 25 MG CAPSULE PO SCH (08:10)
[2018-01-31] MEDS: THIAMINE HCL 100 MG TABLET PO SCH (08:10)
[2018-01-31 08:23] VITALS: BP 165/113
[2018-01-31 08:58] VITALS: BP 174/111
[2018-01-31] MEDS: hydrALAZINE HCL 50 MG TABLET PO PRN (08:58)
--- NOTE | 2018-01-31 08:58 | NUR ---
PRN Apresoline Pt BP 174/11 on re-check from am VS and after administration of am BP medication. Sintering Plant Supervisor administered medication per order, with pt having difficulty swallowing medication d/t pt's stomach reduction procedure. Pt required an extended period of time to completely swallow medication, but pt did verbalize complete swallowing of medication. Will continue to monitor, support and encourage according to plan of care.
--- NOTE | 2018-01-31 09:58 | NUR ---
PRN Re-Assessment Pt BP remains elevated at 164/92. Pt discharge BP taken prior to last re-assessment.
--- NOTE | 2018-01-31 10:50 | NUR ---
Discharge Information Security Engineer spent an extensive period with pt educating pt on medication regime, especially as related to HTN. Pt is anxious about BP and states she has, white coat syndrome. Pt perseverates on getting help with anxiety. Information Security Engineer educates pt on need for outpatient services to help with HTN and anxiety. Pt educated on importance of continued sobriety and abstinence. Pt provided with education related to pts diagnosis and withdrawal procedure. Pt provided with copies of labs, notes and significant medical information. Pt signed for all home medication and signed discharge instructions. Pt had all belongings returned. Pt BP elevated on discharge, pt admitted with unstable HTN and has had elevated BP during admission to [facility]. Pt educated on the need for follow-up with PCP for clarification on HTN regime. Information Security Engineer educated pt on importance to follow prescribed medications, prescriptions provided. Pt endorses anxiety, denies HI/SI or A/VH or any associated symptoms. Pt is cooperative with an anxious affect and mood. Pt is discharged per ambulation and accompanied to [facility] to be picked up by pts boyfriend and transported to [facility].
== END 2018-01-31 10:50 | disposition home or self-care (01) | DRG 895 ==
LOC: SRC 12:55
PROVIDERS: ADMIT Internal Medicine; ATTEND Internal Medicine
PROC: HZ2ZZZZ Detoxification Services for Substance Abuse Treatment (ICD-10-PCS; principal; 2018-01-25)
PROC: HZ41ZZZ Group Counseling for Substance Abuse Treatment, Behavioral (ICD-10-PCS; 2018-01-26)
PROC: HZ31ZZZ Individual Counseling for Substance Abuse Treatment, Behavioral (ICD-10-PCS; 2018-01-27)
DX: F10.232 Alcohol dependence with withdrawal with perceptual disturbance (principal); E87.8 Other disorders of electrolyte and fluid balance, not elsewhere classified; E83.42 Hypomagnesemia; I15.8 Other secondary hypertension; E87.1 Hypo-osmolality and hyponatremia; I47.1 Supraventricular tachycardia; E86.0 Dehydration; F13.230 Sedative, hypnotic or anxiolytic dependence with withdrawal, uncomplicated; Y90.9 Presence of alcohol in blood, level not specified; G47.00 Insomnia, unspecified; F41.1 Generalized anxiety disorder; E78.5 Hyperlipidemia, unspecified; E11.9 Type 2 diabetes mellitus without complications; Z91.89 Other specified personal risk factors, not elsewhere classified; Z91.5 Personal history of self-harm; Z83.3 Family history of diabetes mellitus; Z82.49 Family history of ischemic heart disease and other diseases of the circulatory system; Z82.3 Family history of stroke; Z81.1 Family history of alcohol abuse and dependence; Z90.710 Acquired absence of both cervix and uterus; Z98.84 Bariatric surgery status; F32.9 Major depressive disorder, single episode, unspecified; Z79.84 Long term (current) use of oral hypoglycemic drugs; R30.0 Dysuria
CPT/HCPCS: 36415; 70030-TC; 80307; 83735; 84443; 84703; 85025; 86580; 86592; 86705; 86803; 87086; 87340; 87806; 93005; A4663; G0480; J1815; J3411; J7030; Q0162; Q0163